=== PATIENT | female | born 1995 | race Caucasian/White ===

== ENCOUNTER → 2018-11-11 | Outpatient (CLI) | payer OTHER ==
--- NOTE | 2018-11-11 14:46 | US ---
EXAMINATION TYPE: US OB anatomy transabd DATE OF EXAM: 11/11/2018 COMPARISON: None HISTORY: O36.62X0 LARGE FOR DATES Dates/Anatomy TECHNIQUE: Transabdominal (TA) EXAM MEASUREMENTS: GESTATIONAL AGE / DATING Physician Established: (25 weeks/1 days) EDC: 02/23/2019 Dates by Current Scan for: (23 weeks/2 days) EDC: 03/08/2019 SURVEY IUP: Single PLACENTA: Anterior PREVIA: No previa CLARENCE: 16.5 cm Normal CERVICAL LENGTH (transabdominal: norm > 3.0cm): 3.2 cm BIOMETRY PRESENTATION: Breech BPD: 5.7 cm 23 weeks / 4 days HC: 21.5 cm 23 weeks / 4 days AC: 18.5 cm 23 weeks / 3 days FL: 3.9 cm 22 weeks / 4 days ESTIMATED WEIGHT IN GRAMS: 557 grams ESTIMATED WEIGHT IN LBS/OZ: 1 lbs. 4 oz. HC/AC: 1.2 Normal FL/AC: 21% Normal HEART RATE: 155 bpm RHYTHM: Normal ANATOMY SEEN (within normal limits): * Lateral Vent (< 1 cm) 4.2 cm * Cisterna Magna (< 1.1 cm) 0.5 cm * Cerebellum (varies with age) 2.5 cm Choroid Plexus (bilateral) Midline Falx Cavus Septi Pellucidi Four Chamber Heart Outflow tracts: LVOT/RVOT Stomach Situs Nose / Lips Diaphragm Kidneys (bilateral) Bladder Cord Insert Three Vessel Cord Longitudinal Spine Transverse Spine Arms (bilateral) Legs (bilateral) Single live IUP measuring 23 weeks 2 days IMPRESSION: Single live intrauterine with a sonographic age of 23 weeks and 2 days, slightly discordant with the physician established dates. Estimated weight of 1 pounds and 4 ounces on the current examination. Breech presentation. Heart rate is within normal limits at 155 bpm.
== END | disposition home or self-care (01) ==
LOC: RADUSWWP 12:45
PROVIDERS: ATTEND Obstetrics & Gynecology
DX: O36.62X0 Maternal care for excessive fetal growth, second trimester, not applicable or unspecified (principal); O32.1XX0 Maternal care for breech presentation, not applicable or unspecified; Z3A.23 23 weeks gestation of pregnancy
CPT/HCPCS: 76811

== ENCOUNTER → 2018-12-12 | Outpatient (CLI) | payer OTHER ==
[2018-12-12 18:05] LABS: HCT 34.9 % (34.0-46.0); HGB 11.7 gm/dL (11.4-16.0); MCH 31.1 pg (25.0-35.0); MCHC 33.5 g/dL (31.0-37.0); MCV 92.7 fL (80.0-100.0); Mean Platelet Volume 7.7; Platelet Count 151 k/uL (150-450); RBC 3.76 m/uL (3.80-5.40); WBC 11.3 k/uL (3.8-10.6)
[2018-12-13 02:01] LABS: T3, Uptake 15 % (23-37)
[2018-12-13 12:34] LABS: T4, Free (Free Thyroxine) 0.9 ng/dL (0.80-1.80)
[2018-12-14 04:08] LABS: Toxoplasma Antibody (IgG) <3.0 IU/mL (<7.2); Toxoplasma Antibody (IgM) <3.0 AU/mL (<8.0)
== END | disposition home or self-care (01) ==
LOC: LABWHC1 16:52
PROVIDERS: ATTEND Obstetrics & Gynecology
DX: Z34.03 Encounter for supervision of normal first pregnancy, third trimester (principal)
CPT/HCPCS: 36415; 82565; 82947; 84439; 84443; 84479; 85027; 86762; 86777; 86778; 86780; 86850; 86900; 86901; 87340

== ENCOUNTER → 2018-12-13 | Outpatient (CLI) | payer OTHER | END | disposition home or self-care (01) | LOC: LABWHC1 10:09 | PROVIDERS: ATTEND Obstetrics & Gynecology | DX: Z34.03 Encounter for supervision of normal first pregnancy, third trimester (principal) | CPT/HCPCS: 36415; 82950 ==

== ENCOUNTER 2019-01-16 14:48 | Outpatient (CLI) | payer OTHER ==
[2019-01-16 16:06] LABS: Appearance,Urine Clear (Clear); Bilirubin,Urine Negative (Negative); Blood,Urine Negative (Negative); Color,Urine Light Yellow; Glucose,Urine (UA) Negative (Negative); Ketones,Urine Negative (Negative); Leukocyte Esterase,Urine Negative (Negative); Nitrite,Urine Negative (Negative); PH, Urine 6.5 (5.0-8.0); Protein,Urine Negative (Negative); Specific Gravity,Urine 1.006 (1.001-1.035); Urobilinogen,Urine <2.0 mg/dL (<2.0)
[2019-01-16 16:41] LABS: Basophils % (A) 0 %; Eosinophils # (A) 0.1 k/uL (0-0.7); Eosinophils % (A) 0 %; HGB 10.4 gm/dL (11.4-16.0); Hypochromasia Slight; Lymphocytes # (A) 1.8 k/uL (1.0-4.8); Lymphocytes % (A) 14 %; MCH 28.4 pg (25.0-35.0); MCHC 33.6 g/dL (31.0-37.0); Mean Platelet Volume 7.6; Monocytes # (A) 0.5 k/uL (0-1.0); Monocytes % (A) 4 %; Neutrophils # (A) 10.5 k/uL (1.3-7.7); Neutrophils % (A) 81 %; Platelet Count 243 k/uL (150-450); Poikilocytosis Slight; RBC 3.67 m/uL (3.80-5.40); RDW 13.9 % (11.5-15.5)
[2019-01-16 16:43] LABS: MCV 84.5 fL (80.0-100.0)
[2019-01-16 16:45] LABS: ALT 28 U/L (9-52); AST 17 U/L (14-36); Blood Urea Nitrogen 5 mg/dL (7-17); LDH 384 U/L (313-618); Uric Acid 3.2 mg/dL (3.7-7.4)
[2019-01-16 16:59] LABS: T4, Free (Free Thyroxine) 0.58 ng/dL (0.78-2.19)
== END 2019-01-16 16:30 | disposition home or self-care (01) ==
LOC: FBPOP 14:48
PROVIDERS: ATTEND Obstetrics & Gynecology
DX: O13.9 Gestational [pregnancy-induced] hypertension without significant proteinuria, unspecified trimester (principal)
CPT/HCPCS: 59025; 84439; 82570; 84443; 84156; 82565; 83615; 84450; 84460; 84520; 84550; 85025; 81003; G0463; 99215

== ENCOUNTER 2019-03-01 06:27 | Inpatient (IN) | payer OTHER ==
[2019-03-01] MEDS ORDERED: CARBOPROST TROMETHAMINE 250 MCG/ML 1 ML AMP IM PRN (06:46)
[2019-03-01] MEDS ORDERED: OXYTOCIN 10 UNIT/ML 1 ML VIAL IM PRN (06:46)
[2019-03-01] MEDS ORDERED: LIDOCAINE 0.5% (PF) 5 MG/ML (50 ML SDV) SQ PRN (06:46)
[2019-03-01] MEDS ORDERED: METHYLERGONOVINE 0.2 MG/ML 1 ML AMP IM PRN (06:46)
[2019-03-01] MEDS ORDERED: TERBUTALINE 1 MG/ML VIAL SQ PRN (06:46)
[2019-03-01 06:53] VITALS: BMI 30.2
[2019-03-01] MEDS ORDERED: OXYTOCIN 30 UNITS/500 ML NS 30 UNIT in SALINE 1 500ML.BAG IV SCH (07:00)
[2019-03-01] MEDS: LACTATED RINGERS 1,000 ML IV SCH ×2 (07:02→09:48)
[2019-03-01 07:26] LABS: Basophils % (A) 0 %; Eosinophils # (A) 0.1 k/uL (0-0.7); Eosinophils % (A) 1 %; HCT 29.4 % (34.0-46.0); HGB 9.5 gm/dL (11.4-16.0); Hypochromasia Moderate; Lymphocytes % (A) 20 %; MCHC 32.2 g/dL (31.0-37.0); MCV 80.6 fL (80.0-100.0); Mean Platelet Volume 8.2; Monocytes # (A) 0.5 k/uL (0-1.0); Monocytes % (A) 5 %; Neutrophils # (A) 7.2 k/uL (1.3-7.7); Neutrophils % (A) 72 %; Platelet Count 213 k/uL (150-450); Poikilocytosis Slight; RBC 3.65 m/uL (3.80-5.40); RDW 15.2 % (11.5-15.5); WBC 10.1 k/uL (3.8-10.6)
[2019-03-01] MEDS ORDERED: BUTORPHANOL 1 MG/ML 1 ML VIAL IV PRN (09:34)
[2019-03-01] MEDS ORDERED: SODIUM CHLORIDE 0.9% 100 ML BAG ONE (09:47)
[2019-03-01] MEDS ORDERED: ROPIVACAINE 5MG/ML 20ML VIAL ONE (09:47)
[2019-03-01] MEDS ORDERED: fentaNYL (PF) 50 MCG/ML 5 ML AMP ONE (09:47)
[2019-03-01] MEDS ORDERED: WITCH HAZEL 1 EACH MED..PAD TOPICAL PRN (12:04)
[2019-03-01] MEDS ORDERED: ZOLPIDEM 5 MG TAB PO PRN (12:04)
[2019-03-01] MEDS ORDERED: BENZOCAINE/MENTHOL SPRAY 1 GM/SPRAY AEROSOL TOPICAL PRN (12:04)
[2019-03-01] MEDS ORDERED: IBUPROFEN 600 MG TAB PO PRN (12:04)
[2019-03-01] MEDS ORDERED: diphenhydrAMINE 50 MG CAP PO PRN (12:04)
[2019-03-01] MEDS ORDERED: diphenhydrAMINE 50 MG/ML 1 ML VIAL IVP PRN ×2 (12:04)
[2019-03-01] MEDS ORDERED: HYDROCORTISONE 2.5% RECTAL CREAM 30 GM TUBE RECTAL PRN (12:04)
[2019-03-01] MEDS ORDERED: ACETAMINOPHEN TAB 325 MG TAB PO PRN (12:04)
[2019-03-01] MEDS ORDERED: MEASLES-MUMPS-RUBELLA VACC/PF 12,500 UNIT/0.5 ML VIAL SQ ONE (12:04)
[2019-03-01] MEDS ORDERED: LANOLIN CREAM 5 GM TUBE TOPICAL PRN (12:04)
[2019-03-01] MEDS ORDERED: diphenhydrAMINE 25 MG CAP PO PRN (12:04)
[2019-03-01] MEDS ORDERED: SIMETHICONE 80 MG CHEWABLE PO PRN (12:04)
[2019-03-01] MEDS ORDERED: HYDROcodone/APAP 5-325MG 1 EACH TAB PO PRN (12:04)
--- NOTE | 2019-03-01 12:10 | P.HPOB ---
History of Present Illness H&P Date: 03/01/19 Chief Complaint: Intrauterine at term Slime is a 24-year-old at 39 weeks gestation arise for induction of labor. Her course was, complicated by 1 episode of elevated blood pressure and then some continued slight elevations were high normal later after 36 weeks. She is being induced today for same as well as being 39 weeks and term. Otherwise she is feeling well and doing well her blood pressures today have been normal. heart tones are category 1 tracing. Pertinent labs could O+ blood type, Rh and it was negative. She was dilated to 3 cm this morning artificial rupture membranes was performed and clear fluid is noted. Plan for epidural for analgesia. Past Medical History Past Medical History: No Reported History History of Any Multi-Drug Resistant Organisms: None Reported Past Surgical History: No Surgical Hx Reported Additional Past Anesthesia/Blood Transfusion Reaction / Comment(s): pt states her dad " got a rash" with anesthesia Past Psychological History: Anxiety, Depression Additional Psychological History / Comment(s): pt states was years prior to Smoking Status: Never smoker - Past Family History Mother Family Medical History: No Reported History Medications and Allergies Home Medications Medication Instructions Recorded Confirmed Type No Known Home Medications 03/01/19 03/01/19 History Allergies Allergy/AdvReac Type Severity Reaction Status Date / Time No Known Allergies Allergy Verified 03/01/19 06:46 Exam Osteopathic Statement: *. No significant issues noted on an osteopathic structural exam other than those noted in the History and Physical/Consult. Vital Signs Temp Pulse Resp BP Pulse Ox 03/01/19 06:45 98.7 F 97 18 127/77 100 Intake and Output 02/28/19 03/01/19 03/01/19 22:59 06:59 14:59 Other: Weight 72.575 kg - OBG Physical Exam Breast: both: normal (no masses) Abdomen: bowel sounds normal, no diffuse tenderness, no bruit present, no guarding noted, no hepatomegaly, no splenomegaly, no mass Vulva: both: normal Vagina: normal moisture, no discharge Cervix: no lesion, no discharge Uterus: normal size, normal contour Adnexa: both: normal Anus/Rectum: normal perianal skin, no rectal mass, no hemorrhoids, heme negative Results Result Diagrams: 03/01/19 07:00 Abnormal Lab Results - Last 24 Hours (Table) 03/01/19 Range/Units 07:00 RBC 3.65 L (3.80-5.40) m/uL Hgb 9.5 L (11.4-16.0) gm/dL Hct 29.4 L (34.0-46.0) %
--- NOTE | 2019-03-01 12:11 | P.PROBDLV ---
Vaginal Delivery Note - . Vaginal Delivery Note: Patient progressed complete and pushed with spontaneous vaginal delivery of a viable female over a second-degree perineal laceration. Falling deliver the head mom stopped pushing and continuous state that she was unable to push even with gentle downward traction was unable to deliver the anterior shoulder therefore I grasp underneath the axilla posterior shoulder and a clockwise rotation was able to free the anterior shoulder underneath the pubic bone in the remainder the baby delivered without difficulty. I suspect this is more due to maternal factors then shoulder dystocia. Once baby was fully delivered mouth nares were bulb suctioned and baby was placed on mother's abdomen where the umbilical cord was allowed to pulsate for 40 seconds prior to clamping and cutting. Placenta was then delivered intact and Pitocin was added to the IV. Second-degree area laceration was repaired in usual fashion with 3-0 Vicryl following 1% Xylocaine for analgesia. scores were 8 and 9 at one and 5 minutes respectively and the weight was 7 lbs. 3 oz. Mother and baby are both stable following delivery.
[2019-03-01] MEDS ORDERED: OXYTOCIN 20 UNITS/1000 ML NS 1,000 ML IV SCH (12:15)
[2019-03-01] MEDS: SENNOSIDES-DOCUSATE SODIUM 1 EACH TAB PO SCH (19:42)
[2019-03-02] MEDS ORDERED: DIPH,PERTUS(ACELL)TETVAC-LF 0.5 ML VIAL IM ONE (08:12)
[2019-03-02] MEDS: SENNOSIDES-DOCUSATE SODIUM 1 EACH TAB PO SCH (08:40)
[2019-03-02 10:07] VITALS: BP 109/68; PULSE 97; RESP 18; TEMP 98.5
--- NOTE | 2019-03-02 13:24 | P.DS ---
Providers Date of admission: 03/01/19 06:27 Expected date of discharge: 03/02/19 Attending physician: Jaya aKy Primary care physician: Stated None - Discharge Diagnosis(es) (1) Normal vaginal delivery Current Visit: Yes Status: Acute Hospital Course: Patient presented for induction of labor at term. Seh underwent a normal vaginal delivery. HEr pp course was uncomplicated. She will be discharged home PPD #1 in stable condition to follow up with Dr Kay in 6 weeks. Plan - Discharge Summary New Discharge Prescriptions: New Ibuprofen [Motrin] 600 mg PO Q6HR PRN #30 tab PRN Reason: Mild Pain Or Fever >= 100.5 Discharge Medication List Ibuprofen [Motrin] 600 mg PO Q6HR PRN #30 tab 03/02/19 [Rx] Follow up Appointment(s)/Referral(s): Jaya Kay DO [Doctor of Osteopathic Medicine] - 6 Weeks Discharge Disposition: HOME SELF-CARE
== END 2019-03-02 14:10 | disposition home or self-care (01) | DRG 807 ==
LOC: 4FBP 06:27
PROVIDERS: ADMIT Obstetrics & Gynecology; ATTEND Obstetrics & Gynecology
PROC: 10E0XZZ Delivery of Products of Conception, External Approach (ICD-10-PCS; principal; 2019-03-01)
PROC: 0KQM0ZZ Repair Perineum Muscle, Open Approach (ICD-10-PCS; 2019-03-01)
DX: O99.42 Diseases of the circulatory system complicating childbirth (principal); Z37.0 Single live birth; R03.0 Elevated blood-pressure reading, without diagnosis of hypertension; O70.1 Second degree perineal laceration during delivery; Z3A.39 39 weeks gestation of pregnancy; Z86.59 Personal history of other mental and behavioral disorders
CPT/HCPCS: 85025; 86850; 86900; 86901; 90707; 90715

== ENCOUNTER → 2019-05-11 | Outpatient (CLI) | payer OTHER | END | disposition home or self-care (01) | LOC: LABWHC1 10:09 | PROVIDERS: ATTEND Obstetrics & Gynecology | DX: N91.2 Amenorrhea, unspecified (principal) | CPT/HCPCS: 36415; 84702 ==

== ENCOUNTER 2019-12-02 15:25 | Emergency (ER) | payer OTHER ==
[2019-12-02 15:38] VITALS: BP 157/92; PULSE 105; RESP 16; TEMP 97.8
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
== END 2019-12-02 17:28 | disposition home or self-care (01) ==
LOC: EC 15:25
DX: S62.616A Displaced fracture of proximal phalanx of right little finger, initial encounter for closed fracture (principal); V43.52XA Car driver injured in collision with other type car in traffic accident, initial encounter; Y92.410 Unspecified street and highway as the place of occurrence of the external cause
CPT/HCPCS: 29125; 70450; 70486; 72125; 81025; 99284

== ENCOUNTER 2021-11-24 06:00 | Inpatient (IN) | payer OTHER ==
[2021-11-24] MEDS: LACTATED RINGERS 1,000 ML IV SCH ×2 (07:30→09:06)
[2021-11-24] MEDS ORDERED: METHYLERGONOVINE 0.2 MG/ML 1 ML AMP IM PRN (07:37)
[2021-11-24] MEDS ORDERED: LIDOCAINE 1% (PF) 10 MG/ML (30 ML SDV) SQ PRN (07:37)
[2021-11-24] MEDS ORDERED: CARBOPROST TROMETHAMINE 250 MCG/ML 1 ML AMP IM PRN (07:37)
[2021-11-24] MEDS ORDERED: TERBUTALINE 1 MG/ML VIAL SQ PRN (07:37)
[2021-11-24] MEDS ORDERED: OXYTOCIN 10 UNIT/ML 1 ML VIAL IM PRN (07:37)
[2021-11-24] MEDS ORDERED: OXYTOCIN 30 UNITS/500 ML NS 30 UNIT in SALINE 1 500ML.BAG IV SCH ×2 (07:45→12:30)
[2021-11-24 08:15] LABS: Basophils % (A) 0 %; Eosinophils % (A) 0 %; HCT 32.3 % (34.0-46.0); HGB 10.4 gm/dL (11.4-16.0); Hypochromasia Slight; Lymphocytes # (A) 2.3 k/uL (1.0-4.8); Lymphocytes % (A) 22 %; MCH 26.4 pg (25.0-35.0); MCHC 32.1 g/dL (31.0-37.0); MCV 82.2 fL (80.0-100.0); Mean Platelet Volume 8.4; Monocytes # (A) 0.5 k/uL (0-1.0); Monocytes % (A) 5 %; Neutrophils # (A) 7.4 k/uL (1.3-7.7); Neutrophils % (A) 71 %; Platelet Count 249 k/uL (150-450); Poikilocytosis Slight; RBC 3.93 m/uL (3.80-5.40); RDW 15.1 % (11.5-15.5); WBC 10.5 k/uL (3.8-10.6)
[2021-11-24] MEDS ORDERED: ROPIVACAINE 100 MG, fentaNYL (PF). 200 MCG in SODIUM CHLORIDE 0.9% 76 ML EPIDURAL ONE (10:42)
[2021-11-24] MEDS ORDERED: BENZOCAINE/MENTHOL SPRAY 1 GM/SPRAY AEROSOL TOPICAL PRN (12:24)
[2021-11-24] MEDS ORDERED: diphenhydrAMINE 50 MG CAP PO PRN (12:24)
[2021-11-24] MEDS ORDERED: ZOLPIDEM 5 MG TAB PO PRN (12:24)
[2021-11-24] MEDS ORDERED: diphenhydrAMINE 50 MG/ML 1 ML VIAL IVP PRN ×2 (12:24)
[2021-11-24] MEDS ORDERED: SIMETHICONE 80 MG CHEWABLE PO PRN (12:24)
[2021-11-24] MEDS ORDERED: LANOLIN CREAM 5 GM TUBE TOPICAL PRN (12:24)
[2021-11-24] MEDS ORDERED: ACETAMINOPHEN TAB 325 MG TAB PO PRN (12:24)
[2021-11-24] MEDS ORDERED: HYDROCORTISONE 2.5% RECTAL CREAM 30 GM TUBE RECTAL PRN (12:24)
[2021-11-24] MEDS ORDERED: diphenhydrAMINE 25 MG CAP PO PRN (12:24)
--- NOTE | 2021-11-24 12:28 | P.HPOB ---
History of Present Illness H&P Date: 11/24/21 Chief Complaint: Intrauterine at term: Induction of labor Patient is a 26-year-old at 39 weeks gestation arise for elective induction of labor. Her course has been relatively unremarkable and she is feeling well at this time. Pertinent labs do include O+ blood type, Rh and it was negative, rubella is immune, hepatitis B surface antigen/RPR/HIV and GBS are all negative. A category 1 tracing is noted. She is dilated to 5 cm 90% effaced -2 station. Artificial rupture membranes was performed and clear fluid is noted. She plans epidural for analgesia. Anticipate spontaneous vaginal delivery. Past Medical History Past Medical History: No Reported History History of Any Multi-Drug Resistant Organisms: None Reported Past Surgical History: No Surgical Hx Reported Additional Past Anesthesia/Blood Transfusion Reaction / Comment(s): pt states her dad " got a rash" with anesthesia Past Psychological History: Anxiety, Depression Additional Psychological History / Comment(s): pt states was years prior to Smoking Status: Never smoker Past Drug Use History: None Reported - Past Family History Mother Family Medical History: Cancer Additional Family Medical History / Comment(s): colon CA Medications and Allergies Home Medications Medication Instructions Recorded Confirmed Type No Known Home Medications 11/24/21 11/24/21 History Allergies Allergy/AdvReac Type Severity Reaction Status Date / Time No Known Allergies Allergy Verified 11/24/21 07:36 Exam Osteopathic Statement: *. No significant issues noted on an osteopathic structural exam other than those noted in the History and Physical/Consult. Vital Signs Temp Resp BP Pulse Ox 11/24/21 08:02 97.0 F L 18 135/85 100 Intake and Output 11/23/21 11/24/21 11/24/21 22:59 06:59 14:59 Other: Weight 81.647 kg - OBG Physical Exam Breast: both: normal (no masses) Abdomen: bowel sounds normal, no diffuse tenderness, no bruit present, no guarding noted, no hepatomegaly, no splenomegaly, no mass Vulva: both: normal Vagina: normal moisture, no discharge Cervix: no lesion, no discharge Uterus: normal size, normal contour Adnexa: both: normal Anus/Rectum: normal perianal skin, no rectal mass, no hemorrhoids, heme negative Results Result Diagrams: 11/24/21 07:30 Abnormal Lab Results - Last 24 Hours (Table) 11/24/21 Range/Units 07:30 Hgb 10.4 L (11.4-16.0) gm/dL Hct 32.3 L (34.0-46.0) %
--- NOTE | 2021-11-24 12:29 | P.PROBDLV ---
Vaginal Delivery Note - . Vaginal Delivery Note: Patient progressed complete and pushing with spontaneous vaginal delivery of a viable male over a second-degree perineal laceration. Falling deliver the head a nuchal cord 1 was noted and easily reduced. There was a compound hand noted she delivered from left occiput anterior position once hand was cleared anterior posterior shoulder then easily delivered. Remainder the baby was delivered and mouth nares were bulb suctioned. Baby was then placed on moth er's abdomen where the umbilical cord was allowed to pulsate for 60 seconds prior to clamping and cutting an nursery personnel was present to assume care. Placenta was then delivered intact Pitocin was added to the IV. scores were 9 and 9 at one and 5 minutes respectively and the weight was 7 lbs. 13 oz. Second repeat perineal laceration was then repaired with 3-0 Vicryl following 1% Xylocaine for analgesia. Both mother and baby are stable following delivery.
[2021-11-24] MEDS: IBUPROFEN 600 MG TAB PO SCH ×2 (12:49→19:34)
[2021-11-24] MEDS: SENNOSIDES-DOCUSATE SODIUM 1 EACH TAB PO SCH (19:34)
[2021-11-24 19:42] VITALS: RESP 16
[2021-11-25] MEDS: IBUPROFEN 600 MG TAB PO SCH ×3 (05:00→13:43)
[2021-11-25 07:22] LABS: Basophils % (A) 0 %; Eosinophils # (A) 0.1 k/uL (0-0.7); Eosinophils % (A) 1 %; HCT 29.5 % (34.0-46.0); HGB 9.5 gm/dL (11.4-16.0); Hypochromasia Slight; Lymphocytes # (A) 2.3 k/uL (1.0-4.8); Lymphocytes % (A) 18 %; MCH 27.1 pg (25.0-35.0); MCHC 32.4 g/dL (31.0-37.0); MCV 83.7 fL (80.0-100.0); Mean Platelet Volume 8.7; Monocytes # (A) 0.5 k/uL (0-1.0); Monocytes % (A) 4 %; Neutrophils # (A) 9.2 k/uL (1.3-7.7); Neutrophils % (A) 75 %; Platelet Count 219 k/uL (150-450); RBC 3.52 m/uL (3.80-5.40); RDW 14.7 % (11.5-15.5); WBC 12.2 k/uL (3.8-10.6)
[2021-11-25] MEDS: SENNOSIDES-DOCUSATE SODIUM 1 EACH TAB PO SCH (07:32)
[2021-11-25 07:50] VITALS: BP 113/76; PULSE 71; TEMP 97.5
--- NOTE | 2021-11-25 13:10 | P.DS ---
Providers Date of admission: 11/24/21 07:03 Expected date of discharge: 11/25/21 Attending physician: Jaya Kay Primary care physician: Stated None Hospital Course: Patient is doing very well post day 1. She is able to ambulate, void and she is passing flatus. She voices no complaints. Her vital signs are stable and afebrile. She is tolerating her diet well. All questions are answered for her. She requests discharge home today. On physical exam vital signs are stable and afebrile. Heart regular, lungs clear, extremities without pain. Abdomen is soft uterus is firm and below the umbilicus and lochia is reported to be light. Assessment post day 1. Plan discharged home follow up in 6 weeks. Prescription for Motrin was 4 to the pharmacy and discharge instructions were thoroughly reviewed. All questions are answered for her prior to her discharge. She is stable for discharge at this time. Patient Condition at Discharge: Good Plan - Discharge Summary New Discharge Prescriptions: New Ibuprofen [Motrin] 600 mg PO Q6HR PRN #30 tab PRN Reason: Pain Discharge Medication List Ibuprofen [Motrin] 600 mg PO Q6HR PRN #30 tab 11/25/21 [Rx] Follow up Appointment(s)/Referral(s): Sarah Kern DO [Doctor of Osteopathic Medicine] - 01/07/22 11:15 am Activity/Diet/Wound Care/Special Instructions: No heavy lifting, limit stairs and driving, and pelvic rest. If any high temperatures, heavy bleeding, or severe pain call my office Discharge Disposition: HOME SELF-CARE
== END 2021-11-25 14:45 | disposition home or self-care (01) | DRG 807 ==
LOC: 4FBP 07:03
PROVIDERS: ADMIT Obstetrics & Gynecology; ATTEND Obstetrics & Gynecology
PROC: 10E0XZZ Delivery of Products of Conception, External Approach (ICD-10-PCS; principal; 2021-11-24)
PROC: 0KQM0ZZ Repair Perineum Muscle, Open Approach (ICD-10-PCS; 2021-11-24)
DX: O70.1 Second degree perineal laceration during delivery (principal); Z37.0 Single live birth; O69.81X0 Labor and delivery complicated by cord around neck, without compression, not applicable or unspecified; Z3A.39 39 weeks gestation of pregnancy; Z80.0 Family history of malignant neoplasm of digestive organs
CPT/HCPCS: 85025; 86850; 86900; 86901

== ENCOUNTER → 2023-02-15 | Outpatient (CLI) | payer OTHER ==
[2023-02-15 16:10] LABS: Hepatitis B Surface Antigen Nonreactive (Nonreactive); Hepatitis C IgG Antibody Nonreactive (Nonreactive)
[2023-02-15 16:57] LABS: MCH 28.3 pg (27.0-32.0); MCHC 32.4 g/dL (32.0-37.0); MCV 87.3 fL (80.0-97.0); Mean Platelet Volume 11.1 fL (9.5-12.2); NRBC Per 100 WBC 0 /100 WBCS (0.0-0.0); Platelet Count 235 X 10*3/uL (140-440); RBC 4.24 X 10*6/uL (4.10-5.20); RDW 14.4 % (11.5-14.5); WBC 9.88 X 10*3/uL (4.50-10.00)
[2023-02-15 17:52] LABS: Non-African American GFR(CKD) 141.5 (60.0-200.0)
[2023-02-15 18:01] LABS: HIV 2 AB Non-Reactive (Non-Reactive); HIV AB P24 Non-Reactive (Non-Reactive); HIV P24 AG Non-Reactive (Non-Reactive)
== END | disposition home or self-care (01) ==
LOC: LABWHC1 11:42
PROVIDERS: ATTEND Obstetrics & Gynecology
DX: R53.83 Other fatigue (principal)
CPT/HCPCS: 36415; 82565; 82947; 85027; 86762; 86780; 86803; 86850; 86900; 86901; 87340; 87390

== ENCOUNTER 2023-07-07 06:00 | Inpatient (IN) | payer OTHER ==
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
[2023-07-07] MEDS ORDERED: CARBOPROST TROMETHAMINE 250 MCG/ML 1 ML AMP IM PRN (06:19)
[2023-07-07] MEDS ORDERED: TRANEXAMIC 1,000 MG/100ML-NACL 1,000 MG in EMPTY BAG 1 BAG IV PRN (06:19)
[2023-07-07] MEDS ORDERED: METHYLERGONOVINE 0.2 MG/ML 1 ML AMP IM PRN (06:19)
[2023-07-07] MEDS ORDERED: miSOPROStoL 200 MCG TAB PO PRN (06:19)
[2023-07-07] MEDS ORDERED: OXYTOCIN 10 UNIT/ML 1 ML VIAL IM PRN (06:19)
[2023-07-07] MEDS ORDERED: LIDOCAINE 0.5% (PF) 5 MG/ML (50 ML SDV) SQ PRN (06:19)
[2023-07-07] MEDS ORDERED: LIDOCAINE 1% (10MG/ML) FOR IV START INTRADERMA PRN (06:19)
[2023-07-07] MEDS ORDERED: OXYTOCIN 30 UNITS/500 ML NS 30 UNIT in SALINE 1 500ML.BAG IV SCH (06:19)
[2023-07-07] MEDS ORDERED: TERBUTALINE 1 MG/ML VIAL SQ PRN (06:19)
[2023-07-07] MEDS: LACTATED RINGERS 1,000 ML IV SCH ×2 (06:35→10:05)
[2023-07-07 07:20] LABS: Anisocytosis Slight; Basophils % (A) 0 %; Eosinophils # (A) 0.1 k/uL (0-0.7); Eosinophils % (A) 1 %; HCT 28.3 % (34.0-46.0); HGB 9.2 gm/dL (11.4-16.0); Hypochromasia Marked; Lymphocytes # (A) 2.3 k/uL (1.0-4.8); Lymphocytes % (A) 22 %; MCH 25.3 pg (25.0-35.0); MCHC 32.5 g/dL (31.0-37.0); MCV 77.9 fL (80.0-100.0); Mean Platelet Volume 9.3; Microcytosis Slight; Monocytes # (A) 0.5 k/uL (0-1.0); Monocytes % (A) 5 %; Neutrophils # (A) 7.3 k/uL (1.3-7.7); Neutrophils % (A) 71 %; Platelet Count 213 k/uL (150-450); Poikilocytosis Slight; RBC 3.63 m/uL (3.80-5.40); RDW 16.1 % (11.5-15.5); WBC 10.3 k/uL (3.8-10.6)
[2023-07-07] MEDS ORDERED: ROPIVACAINE 5 MG/ML 30 ML VIAL ONE (10:16)
[2023-07-07] MEDS ORDERED: fentaNYL (PF) 50 MCG/ML 5 ML AMP ONE (10:16)
[2023-07-07] MEDS ORDERED: SODIUM CHLORIDE 0.9% 250 ML BAG ONE (10:16)
[2023-07-07] MEDS ORDERED: BENZOCAINE/MENTHOL SPRAY 1 GM/SPRAY AEROSOL TOPICAL PRN (13:38)
[2023-07-07] MEDS ORDERED: LANOLIN CREAM 5 GM TUBE TOPICAL PRN (13:38)
[2023-07-07] MEDS ORDERED: diphenhydrAMINE 50 MG/ML 1 ML VIAL IVP PRN ×2 (13:38)
[2023-07-07] MEDS ORDERED: ACETAMINOPHEN TAB 325 MG TAB PO PRN (13:38)
[2023-07-07] MEDS ORDERED: ZOLPIDEM 5 MG TAB PO PRN (13:38)
[2023-07-07] MEDS ORDERED: HYDROCORTISONE 2.5% RECTAL CREAM 30 GM TUBE RECTAL PRN (13:38)
[2023-07-07] MEDS ORDERED: SIMETHICONE 80 MG CHEWABLE PO PRN (13:38)
[2023-07-07] MEDS ORDERED: diphenhydrAMINE 50 MG CAP PO PRN (13:38)
[2023-07-07] MEDS ORDERED: diphenhydrAMINE 25 MG CAP PO PRN (13:38)
[2023-07-07] MEDS: IBUPROFEN 600 MG TAB PO PRN (15:46)
--- NOTE | 2023-07-07 18:18 | P.PROBDLV ---
Vaginal Delivery Note - . Vaginal Delivery Note: The patient progressed to complete dilation after oxytocin induction of labor and artificial rupture membranes with clear fluid noted. She did receive epidural anesthesia. Once reaching complete, she began pushing. 's head came to a crown. With one further push, the infant's head delivered across the perineum followed by the anterior shoulder and the remainder the infant. was placed on mother's abdomen and nose and mouth were bulb suctioned. Cord was allowed to finish pulsating for approximately 30 seconds. Cord was then clamped and cut. A viable female was noted with scores of 9 at 1 minute and 9 at 5 minutes and weight of 8 lbs. 1 oz. Placenta delivered shortly thereafter, intact, with a three-vessel cord. Uterus contracted fairly well after oxytocin was given and uterine massage was carried out. Inspection of the perineum revealed a small first-degree perineal laceration. This area was anesthetized with 1% lidocaine and then sutured with 3-0 Vicryl suture in a running locked fashion. Estimated blood loss is approximately 200 mL's. Both mother and infant are in stable condition.
[2023-07-08] MEDS: IBUPROFEN 600 MG TAB PO PRN (01:32)
[2023-07-08] MEDS: SENNOSIDES-DOCUSATE SODIUM 1 EACH TAB PO SCH ×2 (01:33→07:56)
[2023-07-08 04:53] VITALS: PULSE 75
[2023-07-08 05:31] LABS: Anisocytosis Slight; Basophils % (A) 0 %; Eosinophils # (A) 0.1 k/uL (0-0.7); Eosinophils % (A) 1 %; HCT 26.8 % (34.0-46.0); HGB 8.5 gm/dL (11.4-16.0); Hypochromasia Marked; Lymphocytes % (A) 18 %; MCH 24.3 pg (25.0-35.0); MCHC 31.7 g/dL (31.0-37.0); MCV 76.8 fL (80.0-100.0); Mean Platelet Volume 9.2; Microcytosis Slight; Monocytes # (A) 0.4 k/uL (0-1.0); Monocytes % (A) 3 %; Neutrophils # (A) 8.3 k/uL (1.3-7.7); Neutrophils % (A) 76 %; Platelet Count 181 k/uL (150-450); Poikilocytosis Slight; RBC 3.49 m/uL (3.80-5.40); RDW 16.1 % (11.5-15.5); WBC 10.9 k/uL (3.8-10.6)
[2023-07-08 08:17] VITALS: BP 122/73; RESP 18; TEMP 97.9
--- NOTE | 2023-07-08 08:26 | P.DS ---
Providers Date of admission: 07/07/23 06:00 Expected date of discharge: 07/08/23 Attending physician: Riya Hernandes Primary care physician: Stated None - Discharge Diagnosis(es) (1) 39 weeks gestation of Current Visit: No Status: Acute Hospital Course: This is a 28-year-old female 3 para 2 at 39-2/7 weeks who presents for induction of labor. She underwent oxytocin induction of labor and delivered vaginally a viable female on 07/07/2023 with scores of 9 at 1 minute and 9 at 5 minutes and weight of 8 lbs. 1 oz. Her course has been uncomplicated. She is bottle feeding. Lochia is decreasing. Her pain is well-controlled. Vital signs are stable. Abdomen is soft with fundus firm and nontender. Extremities show negative Homans. Impression is status post vaginal delivery day #1. Plan is to discharge home today. Routine instructions are given. She is advised to follow up in the office in 6 weeks for a check. She is advised to call the office if she has any further questions or concerns prior to her appointment time. She will be given a prescription for ibuprofen. Procedures: Oxytocin induction of labor Spontaneous vaginal delivery of a viable female on 07/07/2023 Patient Condition at Discharge: Stable Plan - Discharge Summary New Discharge Prescriptions: New Ibuprofen [Motrin] 600 mg PO Q6HR PRN #60 tab PRN Reason: Mild Pain (Scale 1 To 3) Continue Vit No.180/Iron/Folic [ Plus Vitamin-Mineral] 1 each PO DAILY Discharge Medication List Vit No.180/Iron/Folic [ Plus Vitamin-Mineral] 1 each PO DAILY 07/06/23 [History] Ibuprofen [Motrin] 600 mg PO Q6HR PRN #60 tab 07/08/23 [Rx] Follow up Appointment(s)/Referral(s): Riya Hernandes DO [Doctor of Osteopathic Medicine] - 08/19/23 11:30 am Activity/Diet/Wound Care/Special Instructions: Instructions 1. Do not begin any exercise program for 3 weeks. 2. Do not resume sexual relations for 3 weeks or longer if uncomfortable. 3. You may take tub baths or showers at any time. 4. You may use tampons if desired after 3 weeks. 5. Keep the area of episiotomy (stitches) clean and dry. 6. If you are not nursing, wear a good fitting, supportive bra during the day and limit fluid intake for at least 1 week to prevent breast engorgement. 7. Call the office, [phone], within the next week to make appointment for your 6 week checkup if it has not already been made. 8. Report any of the following occurrences to the doctor promptly: a. Heavy, excessive bleeding b. Chills, fever c. Burning or frequency of urination d. Pain or redness and breasts if nursing e. Increasing pain or swelling in episiotomy (stitches). In addition to the above instructions, the following additional should be followed: 1. No heavy lifting or straining (exercising) until after 6 week checkup. 2. Keep abdominal incision clean and dry: You may wear a dressing if more comfortable. 3. Make office appointment for 10 days after going home or as instructed by her doctor. Discharge Disposition: HOME SELF-CARE
== END 2023-07-08 14:45 | disposition home or self-care (01) | DRG 560 ==
LOC: 4FBP 06:00
PROVIDERS: ADMIT Obstetrics & Gynecology; ATTEND Obstetrics & Gynecology
PROC: 10E0XZZ Delivery of Products of Conception, External Approach (ICD-10-PCS; principal; 2023-07-07)
PROC: 0HQ9XZZ Repair Perineum Skin, External Approach (ICD-10-PCS; 2023-07-07)
PROC: 10907ZC Drainage of Amniotic Fluid, Therapeutic from Products of Conception, Via Natural or Artificial Opening (ICD-10-PCS; 2023-07-07)
PROC: 3E033VJ Introduction of Other Hormone into Peripheral Vein, Percutaneous Approach (ICD-10-PCS; 2023-07-07)
DX: O99.344 Other mental disorders complicating childbirth (principal); O70.0 First degree perineal laceration during delivery; F32.A Depression, unspecified; F41.9 Anxiety disorder, unspecified; Z37.0 Single live birth; Z3A.39 39 weeks gestation of pregnancy
CPT/HCPCS: 85025; 86850; 86900; 86901